=== PATIENT | female | born 1975 | race Caucasian/White ===

== ENCOUNTER 2017-01-10 05:04 | Inpatient (IN) | payer OTHER ==
[2017-01-10] VITALS (8 sets, daily range): BP systolic 107–133; BP diastolic 68–76; PULSE 74–102; TEMP 36.3–36.6; O2SAT 93–98; Ht 165.1 cm; Wt 56.0 kg
[~2017-01-10] VITALS: Ht 165.1 cm; Wt 56.0 kg
[~2017-01-10 05:04] MED LIST: FOLITAB13 PO; MTR600X PO; OXYC5TAB PO; PRENTAB26 PO
[2017-01-10] MEDS ORDERED: SODIUM CHLORIDE 0.9% 1000ML 1,000 ML IV STA (05:20)
[2017-01-10] MEDS ORDERED: ONDANSETRON INJ 2 MG/ML 2 ML VIAL IV STA (05:20)
[2017-01-10] MEDS ORDERED: MoRPHine SULFATE 4 MG/ML 1 ML CARP\\VIAL IV STA (05:20)
--- NOTE | 2017-01-10 05:26 | EMERGENCY ROOM VISIT NOTE ---
History Report prepared by Mateoibkae: Jamie Toledo Under the Supervision of: Dr. Abel Webster D.O. First contact with patient: 05:14 Chief Complaint: ABDOMINAL PAIN Stated Complaint: SEVERE PAIN IN LWR RT ABDOMEN History of Present Illness The patient is a 41 year old female who presents to the Emergency Room with complaints of worsening right lower quadrant abdominal pain since 1929 last night. The pain is severe. The patient had similar pain early in the month, which improved on its own. She also had two episodes of lightheadedness. She denies fevers, diarrhea, or abnormal vaginal discharge. She was able to eat yesterday. Her menstrual period is ending. The patient was having trouble sleeping this morning secondary to pain. She has never had surgery of the abdomen. Source of History: patient Onset: 1929 last night Position: abdomen (RLQ) Symptom Intensity: severe Timing: worsening Associated Symptoms: No diarrhea, No fevers Review of Systems See HPI for pertinent positives and negatives. A total of ten systems were reviewed and were otherwise negative. Past Medical & Surgical Medical Problems: (1) POSSIBLE LABOR (2) POSSIBLE LABOR (3) (4) Uterine contractions at greater than 20 weeks of gestation Family History Aneurysm Social History Smoking Status: Never Smoker Marital Status: Housing Status: lives with family Occupation Status: employed Current/Historical Medications Scheduled Control Pills ( Control Pills), 1 TAB PO DAILY Scheduled PRN Ibuprofen (Ibuprofen), 400 MG PO Q8 PRN for Pain Allergies Uncoded Allergies: SUXAMETHONUIM CHLORIDE (Allergy, Severe, FAMILY HX OF MALIGNANT HYPERTHERMIA, 01/10/17) Physical Exam Vital Signs Date Time Temp Pulse Resp B/P Pulse Ox O2 Delivery O2 Flow Rate FiO2 01/10/17 06:16 96 18 112/65 97 Room Air 01/10/17 05:08 36.9 99 18 126/61 98 Room Air Physical Exam GENERAL: Awake, alert, well-appearing, in no distress HENT: Normocephalic, atraumatic. Oropharynx unremarkable. EYES: Normal conjunctiva. Sclera non-icteric. NECK: Supple. No nuchal rigidity. FROM. No JVD. RESPIRATORY: Clear to auscultation. CARDIAC: Regular rate, normal rhythm. Extremities warm and well perfused. Pulses equal. ABDOMEN: Moderate tenderness of the right lower quadrant with rebound, no guarding no rigidity. RECTAL: Deferred. MUSCULOSKELETAL: Chest examination reveals no tenderness. The back is symmetrical on inspection without obvious abnormality. There is no CVA tenderness to palpation. No joint edema. LOWER EXTREMITIES: Calves are equal size bilaterally and non-tender. No edema. No discoloration. NEURO: Normal sensorium. No sensory or motor deficits noted. SKIN: No rash or jaundice noted. Medical Decision & Procedures ER Provider Diagnostic Interpretation: CT results as stated below per my review and radiologist interpretation CT ABDOMEN & PELVIS: Prominent enhancing tubular structure in the right lower quadrant likely represents a partially visualized appendix, measuring approximately 8 mm. The distal portion is not well seen, although there is suggestion of an enlarged distal appendix measuring approximately 12 mm. There is nonspecific stranding and free fluid in the right lower quadrant. Findings are concerning for appendicitis. No free air. No organized fluid collection seen. Ovoid low density structure in the right adnexa likely representing prominent right ovary. Moderate amount of stool in colon with areas of mild wall thickening. Fecal like material in the distal small bowel suggestive of stasis or reactive ileus. Small pelvic free fluid. Radiologist Jocelyn Chin MD. Laboratory Results 01/10/17 05:24 Red Blood Count 5.07, Mean Corpuscular Volume 90.5, Mean Corpuscular Hemoglobin 30.8, Mean Corpuscular Hemoglobin Concent 34.0, Mean Platelet Volume 9.1, Neutrophils (%) (Auto) 92.5, Lymphocytes (%) (Auto) 3.9, Monocytes (%) (Auto) 3.3, Eosinophils (%) (Auto) 0.0, Basophils (%) (Auto) 0.0, Neutrophils # (Auto) 19.20, Lymphocytes # (Auto) 0.80, Monocytes # (Auto) 0.68, Eosinophils # (Auto) 0.01, Basophils # (Auto) 0.01 01/10/17 05:24 Test 01/10/17 05:24 01/10/17 05:51 White Blood Count 20.76 K/uL (4.8-10.8) Red Blood Count 5.07 M/uL (4.2-5.4) Hemoglobin 15.6 g/dL (12.0-16.0) Hematocrit 45.9 % (37-47) Mean Corpuscular Volume 90.5 fL (80-100) Mean Corpuscular Hemoglobin 30.8 pg (25-34) Mean Corpuscular Hemoglobin Concent 34.0 g/dl (32-36) Platelet Count 374 K/uL (130-400) Mean Platelet Volume 9.1 fL (7.4-10.4) Neutrophils (%) (Auto) 92.5 % Lymphocytes (%) (Auto) 3.9 % Monocytes (%) (Auto) 3.3 % Eosinophils (%) (Auto) 0.0 % Basophils (%) (Auto) 0.0 % Neutrophils # (Auto) 19.20 K/uL (1.4-6.5) Lymphocytes # (Auto) 0.80 K/uL (1.2-3.4) Monocytes # (Auto) 0.68 K/uL (0.11-0.59) Eosinophils # (Auto) 0.01 K/uL (0-0.5) Basophils # (Auto) 0.01 K/uL (0-0.2) RDW Standard Deviation 39.6 fL (36.4-46.3) RDW Coefficient of Variation 11.9 % (11.5-14.5) Immature Granulocyte % (Auto) 0.3 % Immature Granulocyte # (Auto) 0.06 K/uL (0.00-0.02) Urine Color YELLOW Urine Appearance CLEAR (CLEAR) Urine pH 6.0 (4.5-7.5) Urine Specific [place] 1.020 (1.000-1.030) Urine Protein NEG (NEG) Urine Glucose (UA) NEG (NEG) Urine Ketones NEG (NEG) Urine Occult Blood TRACE (NEG) Urine Nitrite NEG (NEG) Urine Bilirubin NEG (NEG) Urine Urobilinogen NEG (NEG) Urine Leukocyte Esterase NEG (NEG) Urine WBC (Auto) 1-5 /hpf (0-5) Urine RBC (Auto) 0-4 /hpf (0-4) Urine Hyaline Casts (Auto) 1-5 /lpf (0-5) Urine Epithelial Cells (Auto) 20-30 /lpf (0-5) Urine Bacteria (Auto) NEG (NEG) Urine Test NEG (NEG) Est Creatinine Clear Calc Drug Dose 82.6 ml/min Estimated GFR () 106.9 Estimated GFR (Non- 92.2 BUN/Creatinine Ratio 20.5 (10-20) Calcium Level 8.8 mg/dl (8.5-10.1) Total Bilirubin 0.6 mg/dl (0.2-1) Direct Bilirubin 0.1 mg/dl (0-0.2) Aspartate Amino Transf (AST/SGOT) 11 U/L (15-37) Alanine Aminotransferase (ALT/SGPT) 23 U/L (12-78) Alkaline Phosphatase 60 U/L (45-117) Total Protein 7.7 gm/dl (6.4-8.2) Albumin 4.2 gm/dl (3.4-5.0) Bedside Hemoglobin 14.6 g/dl (12.0-16.0) Bedside Hematocrit 43 % (37-47) Bedside Sodium 139 mEq/L (135-144) Bedside Potassium 3.7 mEq/L (3.3-5.0) Bedside Chloride 101 mEq/L (101-112) Bedside Total CO2 22 mEq/l (24-31) Anion Gap 20.0 mmol/L (16-25) Bedside Blood Urea Nitrogen 16 mg/dl (7-18) Bedside Creatinine 0.7 mg/dl (0.6-1.3) Bedside Glucose (other) 141 mg/dl (70-99) Bedside Ionized Calcium (Ken) 1.16 mmol/l (1.12-1.32) Laboratory results reviewed by me Medications Administered Medications (Trade) Dose Ordered Sig/[facility] Route Start Time Stop Time Status Last Admin Dose Admin Sodium Chloride (Nss 1000ml) 1,000 ml @ 999 mls/hr Q1H1M STAT IV 01/10/17 05:20 01/10/17 06:20 DC 01/10/17 05:29 999 MLS/HR Ondansetron HCl (Zofran Inj) 4 mg NOW STAT IV 01/10/17 05:20 01/10/17 05:22 DC 01/10/17 05:30 4 MG Morphine Sulfate (MoRPHine SULFATE INJ) 4 mg NOW STAT IV 01/10/17 05:20 01/10/17 05:22 DC 01/10/17 05:31 4 MG Piperacillin Sod/ Tazobactam Sod (Zosyn Iv) 4.5 gm NOW STAT IV 01/10/17 07:13 01/10/17 07:14 DC 01/10/17 07:20 4.5 GM Metronidazole (Flagyl / Nss) 500 mg NOW STAT IV 01/10/17 07:13 01/10/17 07:14 DC 01/10/17 07:20 500 MG ECG Indication: abdominal pain Rate (beats per minute): 92 Rhythm: sinus rhythm Findings: no acute ischemic change, other (normal intervals, normal axis) ED Course 0515: The patient was evaluated in room A11b. A complete history and physical exam was performed. 0520: Morphine Sulfate 4 mg IV, Zofran 4 mg IV, NSS 1000 ml @ 999 mls/hr. 0715: Discussed the findings with the patient. She is pain free unless she moves. No distress at this time. General surgery was paged. 0713: Flagyl / Nss 500 mg IV, Zosyn 4.5 gm IV. 0720: Discussed the case with Dr. Arriola, General Surgeon. The patient will be evaluated. Medical Decision Differential diagnosis includes appendicitis, UTI, ureterolithiasis, pyelonephritis, colitis Patient started on IV fluids IV pain medicine IV antibiotics. On repeat examination at 7:15 AM the patient continues to have pain with movement only. Patient's CAT scan is positive for appendicitis. I discussed the case with the patient and the patient's at bedside. Also discussed the case with Dr. Arriola who will evaluate the patient for admission Consults Time Called: 714 Consulting Physician: Dr. Arriola, General Surgeon Returned Call: [phone] The patient will be evaluated. Impression Primary Impression: Appendicitis Scribe Attestation The scribe's documentation has been prepared under my direction and personally reviewed by me in its entirety. I confirm that the note above accurately reflects all work, treatment, procedures, and medical decision making performed by me. Departure Information Dispostion Being Evaluated By Surgeon Referrals Nadia Jones DO (PCP) Patient Instructions My [facility] Problem Qualifiers Primary Impression: Appendicitis Appendicitis type: acute appendicitis Acute appendicitis type: with localized peritonitis Qualified Codes: K35.3 - Acute appendicitis with localized peritonitis
[2017-01-10] MEDS ORDERED: OPTIRAY 320 IV PRN (05:30)
[2017-01-10] MEDS ORDERED: BCPILLS PO (05:48)
[2017-01-10 05:49] LABS: BASO ABS # 0.01 K/uL (0-0.2); COMPLETE YES; HEMATOCRIT 45.9 % (37-47); IG% 0.3 %; LYMPH % 3.9 %; MEAN CELL VOLUME 90.5 fL (80-100); MEAN CORPUSCULAR HEMOGLOBIN 30.8 pg (25-34); MEAN PLATELET VOLUME 9.1 fL (7.4-10.4); MONO % 3.3 %; NEUT % 92.5 %; PLATELET COUNT 374 K/uL (130-400); RED BLOOD COUNT 5.07 M/uL (4.2-5.4); WHITE BLOOD COUNT 20.76 K/uL (4.8-10.8)
[2017-01-10] MEDS ORDERED: IBUP1CAP9 PO (05:49)
[2017-01-10 05:55] LABS: URINE APPEARANCE CLEAR (CLEAR); URINE BILIRUBIN NEG (NEG); URINE COLOR YELLOW; URINE EPITHELIAL CELL AUTO 20-30 /lpf (0-5); URINE NITRITE NEG (NEG); UROBILINOGEN NEG (NEG)
[2017-01-10 05:57] LABS: MANUAL MICROSCOPIC REQUIRED? NO; REVIEW REQ? NO
[2017-01-10 05:59] LABS: BUN/CREATININE RATIO 20.5 (10-20); CALCIUM 8.8 mg/dl (8.5-10.1); CREATININE 0.8 mg/dl (0.60-1.20); POTASSIUM 3.8 mmol/L (3.5-5.1)
[2017-01-10 06:03] LABS: ISTAT CREATININE 0.7 mg/dl (0.6-1.3); ISTAT HEMOGLOBIN 14.6 g/dl (12.0-16.0); ISTAT IONIZED CALCIUM 1.16 mmol/l (1.12-1.32)
[2017-01-10] MEDS ORDERED: TAMS0.4C38 PO (06:35)
[2017-01-10] MEDS ORDERED: ONDA4TAB10 SL (06:35)
[2017-01-10] MEDS ORDERED: HYDR-5688 PO (06:35)
[2017-01-10] MEDS ORDERED: METRONIDAZOLE 500MG / 100ML NSS IV STA (07:13)
[2017-01-10] MEDS ORDERED: PIPERACILLIN/TAZOBACTAM 4.5 GM/100ML D5W IV STA (07:13)
--- NOTE | 2017-01-10 07:49 | DIAGNOSTIC IMAGING REPORT ---
CHEST ONE VIEW PORTABLE CLINICAL HISTORY: Preoperative evaluation. COMPARISON STUDY: No previous studies for comparison. FINDINGS: Lung volumes are normal. There is no pneumothorax or pleural effusion. Cardiac size is normal. Mediastinal contours are normal. There is no evidence of pulmonary edema. IMPRESSION: No acute cardiopulmonary findings. Electronically signed by: Nitin Meadows M.D. 01/10/2017 7:47 AM Dictated Date/Time: 01/10/2017 7:42 AM
[2017-01-10] MEDS ORDERED: LACTATED RINGER'S 1000ML 1,000 ML IV SCH (08:00)
--- NOTE | 2017-01-10 08:02 | DIAGNOSTIC IMAGING REPORT ---
CT OF THE ABDOMEN AND PELVIS WITH CONTRAST CLINICAL HISTORY: Severe right lower quadrant abdominal pain. COMPARISON STUDY: None. TECHNIQUE: Following IV administration of 119 mL of Optiray-320, axial images of the abdomen and pelvis were obtained from the lung bases to the proximal femurs. Images were reviewed in the axial, sagittal, and coronal planes. IV contrast was administered without complication. CT DOSE: 259.58 mGy.cm FINDINGS: The liver, spleen, adrenal glands, kidneys and pancreas are normal. There is no evidence for a bowel obstruction. A small amount of fluid within the pelvis is noted. A tubular enhancing structure within the right lower quadrant, measuring approximately 1 cm in caliber is difficult to assess on this exam due to a paucity of fat and lack of oral contrast. In addition, this is in close proximity to the right iliac vessels and right adnexa. This suggests acute appendicitis. There is no free air or abscess. Skeletal structures are unremarkable. IMPRESSION: 1. Tubular enhancing structure within the right lower quadrant. Evaluation is difficult given a paucity of fat and lack of oral contrast but the findings suggest acute appendicitis. No free air or abscess. 2. Small amount of fluid within the pelvis. 3. Prominent fluid-filled small bowel loops, several of which contain stool. This could reflect an ileus. Electronically signed by: Nitin Meadows M.D. 01/10/2017 8:01 AM Dictated Date/Time: 01/10/2017 7:57 AM
--- NOTE | 2017-01-10 08:07 | History & Physical Bridge Note ---
H&P Re-Evaluation Bridge Note: I have examined the patient, reviewed the History & Physical and in the interval since the performance of the History & Physical I have noted the following changes of clinical significance: No changes notedh and p dictated ( confirmation number [id number])SO at bedside dx acute appendicitis plan lap appy possible open
--- NOTE | 2017-01-10 08:23 | HISTORY & PHYSICAL EXAMINATION ---
DATE OF ADMISSION: 01/10/2017 SUBJECTIVE: I was called by the ER physician regarding Anat at approximately 7:30 with diagnosis of acute appendicitis. SUMMARY: This is a 41-year-old female who started having some abdominal pain yesterday that progressively got worse. She had a similar pain prior in a month but that became much improved. This pain is quite significant with associated nausea. She had also had 2 episodes of nausea with it. She denies any other GI or symptoms, neurological or neurovascular problems. PAST SURGICAL HISTORY: She denies any previous surgery of abdomen, although she had surgery in the back. PAST HISTORY: She is a nonsmoker, drinker. She did have colonoscopy in the last few years to rule out celiac disease but that seems to be resolved at this time. MEDICATIONS: The only medicine she takes a control pill. REVIEW OF SYSTEMS: reviewed 09-22 is unremarkable. Denies any cardiac or pulmonary history. PHYSICAL EXAMINATION: GENERAL: At this time, revealed the Anat in no acute distress. VITAL SIGNS: Her last vitals showed a temperature of 36.9, pulse 97, respirations 18, blood pressure 120/60, O2 sats 98% on room air. HEAD: Normocephalic. EYES: PERRLA. NECK: Carotid without any bruits, no cervical lymphadenopathy. HEART: Normal. LUNGS: Clear. ABDOMEN: Soft, but she has exquisite tenderness and rebound in the right lower quadrant. IMAGING DATA: The appendix by CAT scan shows it is possibility that it is inflamed to a 12 mm, distal tip could not be seen completely that is consistent with acute appendicitis. LABORATORY DATA: Her white count is 20,000. ASSESSMENT AND PLAN: At this time is to proceed with laparoscopic appendectomy, possible open. Risks and complications were explained to pt bleeding, infection, converting to an open procedure and she would like to proceed accordingly. VIKAS
[2017-01-10] MEDS ORDERED: LIDOCAINE/EPINEPHRINE 1% 20 ML VIAL ONE (08:28)
[2017-01-10] MEDS ORDERED: KETAMINE HCL INJ 50 MG/ML 10 ML VIAL ONE (09:13)
[2017-01-10] MEDS ORDERED: FENTANYL CITRATE INJ 50 MCG/1 ML 2 ML VIAL ONE ×3 (09:13→10:49)
[2017-01-10] MEDS ORDERED: LIDOCAINE HCL 2% 2 ML VIAL (20MG/ML) ONE (09:13)
[2017-01-10] MEDS ORDERED: MIDAZOLAM HCL 1 MG/ML 2ML VIAL ONE (09:13)
[2017-01-10] MEDS ORDERED: DEXAMETHASONE SOD INJ 4 MG/ML VIAL ONE ×2 (09:14→10:25)
[2017-01-10] MEDS ORDERED: PROPOFOL IV EMULSION 10 MG/ML 20 ML VIAL IV ONE (09:14)
[2017-01-10] MEDS ORDERED: ROCURONIUM BROMIDE 10 MG/ML 5 ML VIAL ONE (09:14)
[2017-01-10] MEDS ORDERED: ONDANSETRON INJ 2 MG/ML 2 ML VIAL ONE ×2 (09:14→10:25)
[2017-01-10] MEDS ORDERED: GLYCOPYRROLATE INJ 0.2 MG/ML VIAL ONE (10:25)
[2017-01-10] MEDS ORDERED: NEOSTIGMINE METHYLSULFATE 5 MG/5 ML SYR ONE (10:25)
--- NOTE | 2017-01-10 10:53 | [facility] Post Operative Brief Note ---
Immediate Operative Summary Operative Date Jan 10, 2017. Pre-Operative Diagnosis Acute Appendicitis Post-Operative Diagnosis Same Procedure(s) Performed Laparoscopic Exploration, and Open Appendectomy Surgeon Dr. Arriola [employer] Director Surgeon(s) none Estimated Blood Loss 10 ML Findings acute retrocecal appendicitis possible perforation Specimens A. Appendix
[2017-01-10] MEDS ORDERED: KETOROLAC TROMETHAMINE 30 MG/ML VIAL IV. PRN (11:00)
[2017-01-10] MEDS ORDERED: HYDROmorphone INJ 1 MG/ML SYR IV PRN ×2 (11:00)
[2017-01-10] MEDS ORDERED: PROMETHAZINE HCL INJ 12.5 MG in SODIUM CHLORIDE 0.9% 50ML 50 ML IV PRN (11:00)
[2017-01-10] MEDS ORDERED: ATROPINE SULFATE 0.1 MG/ML 5ML SYR IV PRN (11:00)
[2017-01-10] MEDS ORDERED: ONDANSETRON INJ 2 MG/ML 2 ML VIAL IV PRN (11:00)
[2017-01-10] MEDS ORDERED: EpHEDrine SULFATE INJ 50 MG/ML AMP IV PRN (11:00)
[2017-01-10] MEDS ORDERED: FLUMAZENIL 0.1 MG/1 ML 10 ML VIAL IV PRN (11:00)
[2017-01-10] MEDS ORDERED: NALOXONE HCL 0.4 MG/1 ML VIAL/CARP IV PRN (11:00)
[2017-01-10] MEDS ORDERED: HYDROmorphone INJ 2 MG/ML SYR/VIAL ONE (11:02)
[2017-01-10] MEDS ORDERED: KETOROLAC TROMETHAMINE 30 MG/ML VIAL ONE (11:24)
--- NOTE | 2017-01-10 11:40 | Anesthesiology Progress Note ---
Anesthesia Post Op Note Date & Time Jan 10, 2017 at 11:39 Vital Signs Pain Intensity: 4 Vital Signs Past 12 Hours Date Time Temp Pulse Resp B/P Pulse Ox O2 Delivery O2 Flow Rate FiO2 01/10/17 11:30 37.1 91 16 120/66 99 Nasal Cannula 2 01/10/17 11:20 86 16 125/64 99 Nasal Cannula 2 01/10/17 11:10 37.1 80 16 115/77 100 Mask 10 01/10/17 11:00 80 16 122/75 100 Mask 10 01/10/17 10:54 37.0 87 16 107/80 100 Mask 10 01/10/17 08:34 82 18 116/65 100 Room Air 01/10/17 08:00 98 Room Air 01/10/17 07:23 97 18 120/68 98 Room Air 01/10/17 06:16 96 18 112/65 97 Room Air 01/10/17 05:08 36.9 99 18 126/61 98 Room Air Notes Mental Status: alert / awake / arousable, participated in evaluation Pt Amnestic to Procedure: Yes Nausea / Vomiting: adequately controlled Pain: adequately controlled Airway Patency, RR, SpO2: stable & adequate BP & HR: stable & adequate Hydration State: stable & adequate Anesthetic Complications: no major complications apparent
--- NOTE | 2017-01-10 11:52 | OPERATIVE REPORT ---
DATE OF OPERATION: 01/10/2017 PREOPERATIVE DIAGNOSIS: Acute appendicitis. POSTOPERATIVE DIAGNOSIS: Acute retrocecal appendix with possible perforation. PROCEDURE: Laparoscopy, open appendectomy. SURGEON: Dr. Arriola. OPERATION AND FINDINGS: SUMMARY: The patient was brought into the operating room theater. The abdomen was prepped with Betadine scrub solution and properly draped. We made a small transverse incision supraumbilically enough to place a Veress needle followed by CO2 followed by 5 mm trocar. Point of entry inspected and no injury identified. Under direct visualization, we looked at the right lower quadrant. The patient had the cecum which had an adhesive band broad based against the abdominal wall, even though the patient had not had any previous surgery the cecum was almost to the suprapubic area. We were able to then mobilize the cecum. I could not see the appendix. At this point, the 5 mm trocar was placed in right upper quadrant under direct visualization and again using this grasped we were able then to elevate the cecum and again I could not see the appendix well. It seemed to be possibly all retrocecal. I could see the terminal ileum. I did not see the ovary. At this point, I converted the epigastric trocar to 11 mm trocar under direct visualization and placed a 5 mm trocar in the left lower quadrant. With 2 grabbers I was able to see the appendix coming and going retrocecally. There was no plane of dissection between that and the abdominal wall, actually could see the appendix that was quite thickened in that area. I felt that if I would move this it would probably perforate more. In fact I did look inside the pelvis and I could see a little bit of slightly very minimal some cloudy fluid. At this point, I elected then to convert to an open procedure. Individual trocars removed, closed the wounds with 4-0 Monocryl. #1 PDS was used for the fascial layer and umbilical area. An incision was made in the right lower quadrant McBurney point and deepened through subcutaneous tissue. We actually had a Wilson extension, gema Del Valle that we saw that once we entered the peritoneal cavity the cecum as we had seen it before was quite mobile going down towards the suprapubic area. We at this point, we were able then to free up the cecal capsule and identify the appendix which at the tip of the takeoff at the cecum appeared to be normal but distally was quite inflamed and thickened. As we delivered out of the wound it was significantly more inflamed than I had suspected but I did not see per se any perforation and I did not see any appendicolith or feel any appendicolith. The mesoappendix was then ligated with 2-0 silk. There were small bleeders that were controlled 3-0 silk suture. The base of the appendix was resected with a JACKELINE stapler taking it right off the cecum. The area checked for hemostasis and appeared satisfactory. We returned this in normal anatomic position and then closed the wound using chromic suture for peritoneum and closed the peritoneum in a muscle splitting fashion and then an 0 Vicryl interrupted suture was used to close the Wilson extension and also the external oblique laterally. The area was irrigated and ace approximated the skin edges after we closed with Monocryl the subQ. The procedure was tolerated well by the patient. Estimated blood loss probably 10 mL at most and seemed like everything we would touch would bleeder on her, even the inflammatory process down on the abdominal wall may account for some of this. She was taken to recovery room in good condition. Steri-Strips were applied prior to discharge to the recovery room to the laparoscopic trocar sites. I attest to the content of the Intraoperative Record and any orders documented therein. Any exceptions are noted below. VIKAS
[2017-01-10] MEDS: LACTATED RINGER'S 1000ML 1,000 ML IV SCH ×2 (13:08→20:34)
[2017-01-10] MEDS ORDERED: PIPERACILL/TAZOBAC CONSULT ACTIVE PRN (13:15)
[2017-01-10] MEDS: PIPERACILL/TAZOBAC IV 3.375 GM in DEXTROSE 5% 100ML 100 ML IV SCH ×2 (14:33→20:33)
[2017-01-10] MEDS: OXYCODONE/ACETAMINOPHEN 5-325 TAB PO PRN (18:55)
[2017-01-11] MEDS: LACTATED RINGER'S 1000ML 1,000 ML IV SCH ×2 (03:13→10:29)
[2017-01-11 03:17] VITALS: BP 127/72; PULSE 80; TEMP 36.6; O2SAT 97
[2017-01-11] MEDS: PIPERACILL/TAZOBAC IV 3.375 GM in DEXTROSE 5% 100ML 100 ML IV SCH (05:29)
[2017-01-11 06:45] LABS: BASO % 0.1 %; BASO ABS # 0.02 K/uL (0-0.2); COMPLETE YES; EOS % 0.2 %; IG% 0.3 %; LYMPH % 6.4 %; LYMPH ABS # 1.11 K/uL (1.2-3.4); MEAN CELL VOLUME 90.7 fL (80-100); MEAN CORPUSCULAR HEMOGLOBIN 29.6 pg (25-34); MEAN CORPUSCULAR HGB CONC 32.6 g/dl (32-36); MEAN PLATELET VOLUME 8.9 fL (7.4-10.4); MONO % 4.3 %; NEUT % 88.7 %; PLATELET COUNT 341 K/uL (130-400); RED BLOOD COUNT 4.19 M/uL (4.2-5.4); WHITE BLOOD COUNT 17.36 K/uL (4.8-10.8)
[2017-01-11 06:53] LABS: CREATININE 0.56 mg/dl (0.60-1.20)
[2017-01-11 07:14] VITALS: BP 112/73; PULSE 71; TEMP 36.8; O2SAT 96
[2017-01-11] MEDS ORDERED: OXYC-57 PO (08:15)
--- NOTE | 2017-01-11 08:16 | Discharge Instructions ---
Discharge Instructions Date of Service January 11, 2017. Admission Reason for Admission: Acute Appendicitis Discharge Discharge Diagnosis / Problem: Appendectomy Discharge Goals Goal(s): Decrease discomfort Activity Recommendations Activity Limitations: as noted below Lifting Limitations: no more than 10 pounds Shower/Bathe: no limitations Driving or Machine Use: resume 3 days after discharge (if not taking Percocet) . Instructions / Follow-Up Instructions / Follow-Up Dr. Arriola in 1 week, call [phone] to schedule, [facility], [address] Current Hospital Diet Patient's current hospital diet: Regular Diet Discharge Diet Recommended Diet: Regular Diet Procedures Procedures Performed: Laparoscopic Exploration, and Open Appendectomy Pending Studies Studies pending at discharge: no Medical Emergencies . Who to Call and When: Medical Emergencies: If at any time you feel your situation is an emergency, please call [phone] immediately. . Non-Emergent Contact Non-Emergency issues call your: Surgeon Call Non-Emergent contact if: you have a fever, temperature is above 101.5, your pain is not controlled, wound has increased drainage, wound has increased redness . "Provider Documentation" section prepared by Tanmay Hdez. . VTE Core Measure Inpt VTE Proph given/why not?: SCD's
[2017-01-11] MEDS: OXYCODONE/ACETAMINOPHEN 5-325 TAB PO PRN ×2 (08:17→13:23)
--- NOTE | 2017-01-11 08:47 | SURGERY PROGRESS NOTE ---
DATE: 01/11/2017 SUBJECTIVE: Anat is postop status post laparoscopic attempted but open appendectomy for significant retrocecal inflamed but likely a microperforation. Her temperature is 36.6, pulse 71, respirations 16, blood pressure 112/73, O2 sats 96% on room air. The patient is fairly comfortable. She has really not experienced a lot of significant abdominal pain. Her white count this morning is down to 17.36 with a decrease in left shift. At this point, we will reevaluate the patient later on in the afternoon. Depending how she does, she could certainly be discharged on Augmentin and see her back in the office in approximately 1 week. VIKAS
[2017-01-11] MEDS ORDERED: AMOX875T PO ×2 (13:20→13:22)
[2017-01-11 13:41] VITALS: BP 112/73; PULSE 71; TEMP 36.8; O2SAT 96
--- NOTE | 2017-01-12 15:44 | DISCHARGE SUMMARY ---
PRIMARY DISCHARGE DIAGNOSIS: Acute appendicitis. PROCEDURE PERFORMED: Laparoscopy, open appendectomy. HOSPITAL COURSE: The patient is a 41-year-old female who presented to Emergency Department with right lower quadrant pain that began the evening before. Her white count was 20,000. CT showed a tubular structure in the right lower quadrant suggesting appendicitis. She was taken to the operating room later that morning for appendectomy. On laparoscopy the appendix was identified as retrocecal, significantly inflamed and possibility of microperforation. The procedure was converted to open to reduce contamination. The procedure was well tolerated. She was transferred to the surgical floor. IV Zosyn was continued overnight. On postoperative day 1, her white count improved to 17,000. She remained afebrile. She was able to tolerate a regular diet and oral analgesics. Her incisions were dry. She was stable for discharge in the afternoon of postoperative day 1. DISCHARGE INSTRUCTIONS: Discharge home. Follow up with Dr. Arriola in 1 week. DISCHARGE MEDICATIONS: Percocet 1-2 tablets every 4 hours as needed and Augmentin 875 mg p.o. b.i.d. x1 week. Continue oral contraceptives and Motrin 400 mg every 8 hours as needed.
== END 2017-01-11 14:29 | disposition home or self-care (01) | DRG 343 ==
LOC: ENRESERVDT → ENRESERVTM → C.EDB 05:05 → C.MSN 10:55
PROVIDERS: ADMIT Surgery; ATTEND Surgery
PROC: 0DTJ0ZZ Resection of Appendix, Open Approach (ICD-10-PCS; principal; 2017-01-10 09:00)
DX: K35.80 Unspecified acute appendicitis (principal); Z53.31 Laparoscopic surgical procedure converted to open procedure